=== PATIENT | male | born 1945 | race Caucasian/White ===

== ENCOUNTER → 2017-08-29 | Outpatient (CLI) | payer MEDICARE ==
[~2017-08-29] MED LIST: ALLOPURINOL300 MG PO; ATENOLOL50 MG PO; LISINOPRIL-HCT1 EAC2 PO; VERAPAMIL ER240 MG PO
--- NOTE | 2017-08-29 08:58 | Diagnostic Imaging Report ---
PROCEDURE:US RETROPERITONEAL ( KIDNEY ). COMPARISON:02/07/2017. INDICATIONS:Cyst Of Kidney TECHNIQUE: Cavazos-scale and color sonographic images of the bilateral kidneys and bladder where obtained in transverse and longitudinal planes. FINDINGS: RIGHT KIDNEY: 11.2 cm in length, cortex 1.7 cm Cysts: Partially exophytic large anechoic cyst measures 4.1 x 3.9 x 4.1 cm, without internal vascularity. (Previously 4.1 x 4 x 4.1 cm)Low level internal echoes described on the comparison study are less conspicuous in the current examination. Additional smaller cystic lesion measures 2.2 x 1.5 x 2.3 cm (previously 2.4 x 1.5 x 2.1 cm). Smaller exophytic anechoic cyst measures 1 x 1.1 x 1 cm (previously 1.2 x 1 x 1.2 cm). Solid masses: None Stones: None Hydronephrosis: None Echogenicity: Normal renal cortical echogenicity. LEFT KIDNEY: 12 cm in length, cortex 2.3 cm Cysts: Upper pole exophytic simple cyst measures 1 x 0.9 x 1.5 cm (previously 1.1 x 1.1 x 1 cm). Parenchymal cyst in the interpolar region measures 1 x 0.8 x 1.1 cm (previously 1.1 x 0.7 x 1.0 cm) interval development of a 4 mm calcification along the deep margin of the cyst. Solid masses: None Stones: None Hydronephrosis: None Echogenicity: Normal renal cortical echogenicity. Bladder: Unremarkable. Right and left ureteral jets are identified. Prostate: 4.9 x 4 x 4.3 cm. Estimated volume 45 cc CONCLUSION: When accounting for technical differences, stable bilateral renal cysts, the largest of which projects from the right kidney and measures 4.1 cm in maximum diameter. Minimal echogenic complexity suggested on the previous ultrasound examination is less conspicuous on the current study. Dictated by: Lyle Goodman M.D. on 08/29/2017 at 9:00 Electronically approved by: Lyle Goodman M.D. on 08/29/2017 at 9:00
== END ==
LOC: US 07:14
PROVIDERS: ATTEND Urology
DX: N28.1 Cyst of kidney, acquired (principal)
CPT/HCPCS: 76770